=== PATIENT | male | born 1980 | race Two or more races ===

== ENCOUNTER 2020-06-27 16:49 | Outpatient (REF) | payer OTHER, SELFPAY | END 2020-06-27 16:50 | disposition home or self-care (01) | LOC: HO.LAB 16:49 | PROVIDERS: Visit Provider Internal Medicine | DX: Z20.828 Contact with and (suspected) exposure to other viral communicable diseases (principal) | CPT/HCPCS: C9803; U0003 ==

== ENCOUNTER 2020-07-02 17:03 | Outpatient (REF) | payer OTHER, SELFPAY | END 2020-07-02 17:04 | disposition home or self-care (01) | LOC: HO.LAB 17:03 | PROVIDERS: Visit Provider Internal Medicine | DX: Z20.828 Contact with and (suspected) exposure to other viral communicable diseases (principal) | CPT/HCPCS: 36415; C9803; U0003 ==